=== PATIENT | male | born 1995 | race African-American/Black ===

== ENCOUNTER 2020-09-01 13:54 | Emergency (ER) | payer BC ==
[2020-09-01 14:47] LABS: Bacteria/HPF None Seen HPF (None Seen); Bilirubin Negative (Negative); Blood, Urine Negative (Negative); Clarity Clear (Clear); Glucose, Urine (Dipstick) Normal (Negative); Ketone, Urine Negative (Negative); Leukocyte 250 Leu/uL (Negative); Nitrite Negative (Negative); Protein, Urine (Dipstick) 10 mg/dL (Neg-Trace); RBC/HPF 0-3 HPF (0-3); Specific Gravity, Urine 1.026 (1.002-1.036); Squamous Epithelial 0-3 HPF (0-3); Urobilinogen Normal mg/dL (Less than 2); WBC/HPF Greater than 50 HPF (0-3); pH, Urine 6.5 (5.0-9.0)
[2020-09-01] MEDS ORDERED: Azithromycin 250 MG TAB ONE (15:03)
[2020-09-01] MEDS ORDERED: Lidocaine 1% PF 5 ML VIAL ONE ×2 (15:03→15:04)
[2020-09-01] MEDS ORDERED: cefTRIAXone\\ROCEPHIN 1 GM VIAL ONE (15:03)
[2020-09-01] MEDS ORDERED: cefTRIAXone\\ROCEPHIN 250 MG VIAL ONE (15:05)
[2020-09-03 23:09] LABS: Chlam.trachomatis by PCR,Urine DETECTED (NotDetected)
== END 2020-09-01 15:24 | disposition home or self-care (01) ==
LOC: ERS 13:54
DX: N34.2 Other urethritis (principal)
CPT/HCPCS: 81003; 81015; 87491; 87591; 96372; 99283; J0696